=== PATIENT | male | born 1970 | race Two or more races ===

== ENCOUNTER 2023-12-26 12:49 | Emergency (ER) | payer MEDICAID, OTHER ==
[~2023-12-26] VITALS: Ht 175.3 cm; Wt 92.3 kg
[2023-12-26 15:02] VITALS: BP 163/98; PULSE 79; RESP 19; TEMP 99.3; O2SAT 96
[2023-12-26] MEDS: HYDROcodone-ACET 10/325MG TAB PO ONE (15:38)
[2023-12-26] MEDS ORDERED: IBUP-1456 PO (15:46)
== END 2023-12-26 15:59 | disposition home or self-care (01) ==
LOC: ER 12:51
DX: S42.294A Other nondisplaced fracture of upper end of right humerus, initial encounter for closed fracture (principal); Z79.899 Other long term (current) drug therapy; V19.9XXA Pedal cyclist (driver) (passenger) injured in unspecified traffic accident, initial encounter; Y93.I9 Activity, other involving external motion; Y92.89 Other specified places as the place of occurrence of the external cause; Y99.8 Other external cause status
CPT/HCPCS: 73030